=== PATIENT | female | born 2000 | race Caucasian/White ===

== ENCOUNTER 2022-02-11 17:06 | Emergency (ER) | payer OTHER, SELFPAY ==
--- NOTE | ~2022-02-11 | XR_ITS ---
EXAMINATION: XR CHEST CLINICAL INFORMATION: Cough. COMPARISON: None TECHNIQUE: Frontal view of the chest was obtained. FINDINGS: Normal appearance of the cardiomediastinal silhouette. No focal airspace opacity, pleural effusion or pneumothorax. No acute osseous abnormalities. The visualized upper abdomen is within normal limits. XR/XR chest 1V IMPRESSION: No acute cardiopulmonary findings.
[2022-02-11 17:28] VITALS: BP 160/86; PULSE 103; RESP 20; TEMP 37.8; O2SAT 98; BMI 19.1
--- NOTE | 2022-02-11 17:28 | ED_ITS ---
HPI - URI/Sore Throat General Chief Complaint: Nausea/Vomiting/Diarrhea <MARVIN Ash Last Filed: 02/11/22 17:34> Stated Complaint: covid/ flu symptoms, vomiting <MARVIN Ash Last Filed: 02/11/22 17:34> Time Seen by Provider: 02/11/22 18:45 <MARVIN Ash Last Filed: 02/11/22 17:34> Source: patient and family <MARVIN Benavides Last Filed: 02/11/22 19:31> Mode of arrival: ambulatory <MARVIN Benavides Last Filed: 02/11/22 19:31> Limitations: no limitations <MARVIN Benavides Last Filed: 02/11/22 19:31> History of Present Illness HPI Narrative: This is a 22-year-old female a history of bipolar disorder on lithium presenting to the emergency department complaints of nausea, vomiting, myalgias, fatigue, fevers T-max 103 degrees F, chills, dry cough x4 days. Patient reports that she has multiple sick contacts at home. She tells me her mom and her room air both sick. She has been taking Tylenol for symptoms. She tells me she has been able to keep down fluids however she has no appetite for solid foods. She tells me she is vaccinated against COVID however not the flu. She denies chest pain, shortness breath, headache, vision changes, dizziness, abdominal pain, diarrhea, hematochezia, hematemesis <MARVIN Benavides Last Filed: 02/11/22 19:31> Related Data Home Medications: Previous Rx's Medication Instructions Recorded benzonatate 100 mg capsule 100 mg PO BID PRN cough #20 caps 02/11/22 ondansetron 4 mg disintegrating 4 mg PO Q6H PRN nausea and 02/11/22 tablet vomiting #14 tabs prednisone 20 mg tablet 20 mg PO DAILY 5 days #5 tabs 02/11/22 <MARVIN Ash Last Filed: 02/11/22 17:34> Allergies/Adverse Reactions: Allergies Allergy/AdvReac Type Severity Reaction Status Date / Time egg [EGG] Allergy Mild INTOLERANCE Unverified 10/26/19 19:40 lactose [LACTOSE] Allergy Mild UNKNOWN Unverified 10/26/19 19:40 azithromycin [AZITHROMYCIN] Allergy Unknown UNKNOWN Unverified 10/26/19 19:40 <MARVIN Ash - Last Filed: 02/11/22 17:34> Review of Systems Review of Systems: Constitutional : No Weight loss, + Fever, + Chills, + Fatigue, + Malaise ENT/Mouth : No sore throat, No Rhinorrhea Eyes: No Eye Pain, No Swelling, No Redness Cardiovascular : No Chest Pain, No SOB, No Dyspnea on Exertion, No Orthopnea, No Edema, No Palpitations Respiratory : + Cough, No Sputum, No Wheezing Gastrointestinal : + Nausea, + Vomiting, No Diarrhea, No Constipation, No abdominal Pain, No Hematochezia, No Melena Genitourinary : No Dysuria, No Urinary Frequency, No Hematuria, Musculoskeletal : No joint pain, + Myalgias, No Joint Swelling Skin : No Skin Lesions, No rash Neuro : No Weakness, No Numbness, No Dizziness, No Headache Psych : No Anxiety/Panic, No Depression All other systems reviewed and are negative <MARVIN Benavides - Last Filed: 02/11/22 19:31> Yes all other systems are reviewed and are negative <MARVIN Benavides - Last Filed: 02/11/22 19:31> [facility] Past Medical History Attestation statement: The following information was validated with the patient. <MARVIN Benavides - Last Filed: 02/11/22 19:31> Source: old records reviewed and nursing notes reviewed <MARVIN Benavides - Last Filed: 02/11/22 19:31> Social History Social History: Social History Advance Directives: No Advance Directives Information Provided: Yes <MARVIN Ash - Last Filed: 02/11/22 17:34> Physical Exam Vital Signs: Vital Signs: Last Vital Signs Temp 100.1 F 02/11/22 17:28 Pulse 103 H 02/11/22 17:28 Resp 20 02/11/22 17:28 BP 160/86 H 02/11/22 17:28 Pulse Ox 98 02/11/22 17:28 O2 Del Method 02/11/22 17:28 BMI result Body Mass Index 19.1 <MARVIN Ash - Last Filed: 02/11/22 17:34> Vital Signs: Last Vital Signs Temp 100.1 F 02/11/22 17:28 Pulse 103 H 02/11/22 17:28 Resp 20 02/11/22 17:28 BP 160/86 H 02/11/22 17:28 Pulse Ox 98 02/11/22 17:28 O2 Del Method 02/11/22 17:28 BMI result Body Mass Index 19.1 <MARVIN Benavides - Last Filed: 02/11/22 19:31> Course Course Course Narrative: RME--22yo F w/pmhx bipolar c/o cough, fever, chills, myalgias, nausea, vomiting & diarhea with inability to tolerate PO x 4 days. Denies abd pain, recent travel, sick contacts or suspicious food intake Febrile to 101 in triage, dry cough noted. Labs, UA, preg, IVF ordered. Pt given SL Zofran and PO Tylenol in triage <MARVIN Ash - Last Filed: 02/11/22 17:34> Reevaluation(s) Reevaluation #1: CBC appears to be within patient's baseline. Chemistry with no acute findings requiring intervention chest x-ray with acute findings. UA clean. negative. Patient positive for influenza likely contributing to patient's symptoms. She also has multiple sick contacts. Patient is not a candidate for Tamiflu as her symptoms have been going on for greater than 48 hours. Patient tells me she cannot take ibuprofen so I a educated her on taking Tylenol, to not exceed maximum daily dose. Told her if she is unable to tolerate p.o. at all she needs to return. Or return with new or worsening symptoms. Educated patient on diagnosis and treatment plan, answered all question, patient verbalizes understanding. At this time patient will be discharged home, advised to return with new or worsening symptoms. Educated on worrisome signs and symptoms and when to return. At this time I feel comfortable discharge home. <MARVIN Benavides - Last Filed: 02/11/22 19:31> Time: 19:30 <MARVIN Benavides - Last Filed: 02/11/22 19:31> Medications Administered Discontinued Medications Generic Name Dose Route Start Last Admin Trade Name Freq PRN Reason Stop Dose Admin Acetaminophen 650 mg 02/11/22 17:28 02/11/22 17:34 Acetaminophen 325 Mg Tablet PO 02/11/22 17:29 650 mg ONCE ONE Administration Ondansetron HCl 4 mg 02/11/22 17:28 02/11/22 17:34 Ondansetron Odt 4 Mg Tab.Rapdis TRANSLINGU 02/11/22 17:29 4 mg ONCE ONE Administration <MARVIN Ash - Last Filed: 02/11/22 17:34> Medications Administered Discontinued Medications Generic Name Dose Route Start Last Admin Trade Name Freq PRN Reason Stop Dose Admin Acetaminophen 650 mg 02/11/22 17:28 02/11/22 17:34 Acetaminophen 325 Mg Tablet PO 02/11/22 17:29 650 mg ONCE ONE Administration Ondansetron HCl 4 mg 02/11/22 17:28 02/11/22 17:34 Ondansetron Odt 4 Mg Tab.Rapdis TRANSLINGU 02/11/22 17:29 4 mg ONCE ONE Administration <MARVIN Benavides Last Filed: 02/11/22 19:31> Medical Decision Making Medical Decision Making MDM Narrative: 1914 22-year-old female presents with flu-like symptoms x4 days. Has multiple sick contacts at home and roommates. Reports decreased p.o. intake however tolerating fluids. Physical examination benign. Likely viral in origin. I do not suspect infectious nausea or vomiting, acute abdomen, PE, pneumonia, rhabdomyolysis, electrolyte abnormality. Plan at this time is to obtain basic labs, viral panel, chest x-ray, <MARVIN Benavides Last Filed: 02/11/22 19:31> Differential Diagnosis Differential Diagnoses: The differential diagnosis associated with the presentation includes <MARVIN Benavides Last Filed: 02/11/22 19:31> Likely viral in origin. I do not suspect infectious nausea or vomiting, acute abdomen, PE, pneumonia, rhabdomyolysis, electrolyte abnormality. <MARVIN Benavides Last Filed: 02/11/22 19:31> Admission/Observation Consideration of admission/observation: Escalation of care including admission/observation considered <MARVIN Benavides - Last Filed: 02/11/22 19:31> Not indicated <MARVIN Benavides - Last Filed: 02/11/22 19:31> Lab Data MDM Lab Attestation statement: I reviewed the patient's lab results. <MARVIN Benavides - Last Filed: 02/11/22 19:31> Result Diagrams: : 02/11/22 18:03 02/11/22 18:03 <MARVIN Ash - Last Filed: 02/11/22 17:34> Labs: Lab Results 02/11/22 02/11/22 02/11/22 Range/Units 17:54 17:55 17:55 WBC (4.8-10.8) X10*3/uL RBC (4.20-5.50) X10*6/uL Hgb (12.0-16.0) g/dl Hct (37.0-47.0) % MCV (80.0-98.0) fL MCH (27.0-33.0) pg MCHC (31.0-35.0) g/dl RDW (11.0-16.0) % Plt Count (160-400) X10*3/uL MPV (9.4-12.3) fL Immature Gran % (Auto) (0.0-0.4) % Neut % (Auto) (45-73) % Lymph % (Auto) (20-40) % [place] % (Auto) (2-11) % Eos % (Auto) (0-4) % Baso % (Auto) (0-2) % Lymph # (Auto) (1.2-4.9) X10*3/uL [place] # (Auto) (0.1-1.2) X10*3/uL Eos # (Auto) (0.0-0.4) X10*3/uL Baso # (Auto) (0.0-0.2) X10*3/uL Abs Immat Gran (auto) (0.00-0.03) X10*3/uL Absolute Neuts (auto) (2.0-8.3) x10*3/uL Absolute Nucleated RBC (0.0-0.012) X10*3/uL Nucleated RBC % (auto) (0.0-0.2) /100WBC Sodium (135-145) mmol/L Potassium (3.3-5.1) mmol/L Chloride (96-108) mmol/L Carbon Dioxide (22-29) mmol/L Anion Gap (12-20) BUN (9-16) mg/dL Creatinine (0.5-1.4) mg/dL Estim Creat Clear Calc Estimated GFR Random Glucose (60-115) mg/dL Calcium (8.4-10.2) mg/dL Magnesium (1.6-2.6) mg/dL Total Bilirubin (0.0-1.0) mg/dL Direct Bilirubin (0.0-0.5) mg/dL AST (5-31) U/L ALT (0-31) U/L Alkaline Phosphatase (39-117) U/L Total Protein (6.5-8.0) g/dL Albumin (3.5-5.0) g/dL Lipase (8-78) U/L Urine Color Yellow Urine Appearance Clear Urine pH 6.5 (5.0-9.0) Ur Specific [place] <= 1.005 (1.005-1.025) Urine Protein Negative (Neg-Trace) mg/dL Urine Glucose (UA) Negative (Negative) mg/dL Urine Ketones Negative (Negative) mg/dL Urine Blood Small (1+) H (Negative) Urine Nitrite Negative (Negative) Ur Leukocyte Esterase Negative (Negative) Urine RBC 0-2 (0-2) /HPF Urine WBC 0-5 (0-5) /HPF Ur Squamous Epith Cells 6-10 (0-2) /HPF Urine Bacteria Trace (None Seen) Hyaline Casts 0-2 (0-2) /LPF Urine Test NEGATIVE (NEGATIVE) Influenza Type A (PCR) POSITIVE A (Negative) Influenza Type B (PCR) NEGATIVE (Negative) RSV RNA Qual (PCR) NEGATIVE (Negative) SARS-CoV-2 RNA (RT-PCR) NEGATIVE (Negative) 02/11/22 02/11/22 Range/Units 18:03 18:03 WBC 5.2 (4.8-10.8) X10*3/uL RBC 4.28 (4.20-5.50) X10*6/uL Hgb 12.6 (12.0-16.0) g/dl Hct 36.7 L (37.0-47.0) % MCV 85.7 (80.0-98.0) fL MCH 29.4 (27.0-33.0) pg MCHC 34.3 (31.0-35.0) g/dl RDW 13.2 (11.0-16.0) % Plt Count 99 L (160-400) X10*3/uL MPV 13.0 H (9.4-12.3) fL Immature Gran % (Auto) 0.2 (0.0-0.4) % Neut % (Auto) 71.6 (45-73) % Lymph % (Auto) 16.5 L (20-40) % [place] % (Auto) 11.5 H (2-11) % Eos % (Auto) 0.0 (0-4) % Baso % (Auto) 0.2 (0-2) % Lymph # (Auto) 0.9 L (1.2-4.9) X10*3/uL [place] # (Auto) 0.6 (0.1-1.2) X10*3/uL Eos # (Auto) 0.0 (0.0-0.4) X10*3/uL Baso # (Auto) 0.0 (0.0-0.2) X10*3/uL Abs Immat Gran (auto) 0.01 (0.00-0.03) X10*3/uL Absolute Neuts (auto) 3.7 (2.0-8.3) x10*3/uL Absolute Nucleated RBC 0.000 (0.0-0.012) X10*3/uL Nucleated RBC % (auto) 0.0 (0.0-0.2) /100WBC Sodium 137 (135-145) mmol/L Potassium 3.3 (3.3-5.1) mmol/L Chloride 105 (96-108) mmol/L Carbon Dioxide 23 (22-29) mmol/L Anion Gap 12 (12-20) BUN 4 L (9-16) mg/dL Creatinine 0.79 (0.5-1.4) mg/dL Estim Creat Clear Calc 86.4 Estimated GFR > 60 Random Glucose 101 (60-115) mg/dL Calcium 9.5 (8.4-10.2) mg/dL Magnesium 1.8 (1.6-2.6) mg/dL Total Bilirubin 0.5 (0.0-1.0) mg/dL Direct Bilirubin 0.2 (0.0-0.5) mg/dL AST 24 (5-31) U/L ALT 7 (0-31) U/L Alkaline Phosphatase 52 (39-117) U/L Total Protein 7.4 (6.5-8.0) g/dL Albumin 4.9 (3.5-5.0) g/dL Lipase 19 (8-78) U/L Urine Color Urine Appearance Urine pH (5.0-9.0) Ur Specific [place] (1.005-1.025) Urine Protein (Neg-Trace) mg/dL Urine Glucose (UA) (Negative) mg/dL Urine Ketones (Negative) mg/dL Urine Blood (Negative) Urine Nitrite (Negative) Ur Leukocyte Esterase (Negative) Urine RBC (0-2) /HPF Urine WBC (0-5) /HPF Ur Squamous Epith Cells (0-2) /HPF Urine Bacteria (None Seen) Hyaline Casts (0-2) /LPF Urine Test (NEGATIVE) Influenza Type A (PCR) (Negative) Influenza Type B (PCR) (Negative) RSV RNA Qual (PCR) (Negative) SARS-CoV-2 RNA (RT-PCR) (Negative) <MARVIN Ash - Last Filed: 02/11/22 17:34> Lab Results 02/11/22 02/11/22 02/11/22 Range/Units 17:54 17:55 17:55 WBC (4.8-10.8) X10*3/uL RBC (4.20-5.50) X10*6/uL Hgb (12.0-16.0) g/dl Hct (37.0-47.0) % MCV (80.0-98.0) fL MCH (27.0-33.0) pg MCHC (31.0-35.0) g/dl RDW (11.0-16.0) % Plt Count (160-400) X10*3/uL MPV (9.4-12.3) fL Immature Gran % (Auto) (0.0-0.4) % Neut % (Auto) (45-73) % Lymph % (Auto) (20-40) % [place] % (Auto) (2-11) % Eos % (Auto) (0-4) % Baso % (Auto) (0-2) % Lymph # (Auto) (1.2-4.9) X10*3/uL [place] # (Auto) (0.1-1.2) X10*3/uL Eos # (Auto) (0.0-0.4) X10*3/uL Baso # (Auto) (0.0-0.2) X10*3/uL Abs Immat Gran (auto) (0.00-0.03) X10*3/uL Absolute Neuts (auto) (2.0-8.3) x10*3/uL Absolute Nucleated RBC (0.0-0.012) X10*3/uL Nucleated RBC % (auto) (0.0-0.2) /100WBC Sodium (135-145) mmol/L Potassium (3.3-5.1) mmol/L Chloride (96-108) mmol/L Carbon Dioxide (22-29) mmol/L Anion Gap (12-20) BUN (9-16) mg/dL Creatinine (0.5-1.4) mg/dL Estim Creat Clear Calc Estimated GFR Random Glucose (60-115) mg/dL Calcium (8.4-10.2) mg/dL Magnesium (1.6-2.6) mg/dL Total Bilirubin (0.0-1.0) mg/dL Direct Bilirubin (0.0-0.5) mg/dL AST (5-31) U/L ALT (0-31) U/L Alkaline Phosphatase (39-117) U/L Total Protein (6.5-8.0) g/dL Albumin (3.5-5.0) g/dL Lipase (8-78) U/L Urine Color Yellow Urine Appearance Clear Urine pH 6.5 (5.0-9.0) Ur Specific [place] <= 1.005 (1.005-1.025) Urine Protein Negative (Neg-Trace) mg/dL Urine Glucose (UA) Negative (Negative) mg/dL Urine Ketones Negative (Negative) mg/dL Urine Blood Small (1+) H (Negative) Urine Nitrite Negative (Negative) Ur Leukocyte Esterase Negative (Negative) Urine RBC 0-2 (0-2) /HPF Urine WBC 0-5 (0-5) /HPF Ur Squamous Epith Cells 6-10 (0-2) /HPF Urine Bacteria Trace (None Seen) Hyaline Casts 0-2 (0-2) /LPF Urine Test NEGATIVE (NEGATIVE) Influenza Type A (PCR) POSITIVE A (Negative) Influenza Type B (PCR) NEGATIVE (Negative) RSV RNA Qual (PCR) NEGATIVE (Negative) SARS-CoV-2 RNA (RT-PCR) NEGATIVE (Negative) 02/11/22 02/11/22 Range/Units 18:03 18:03 WBC 5.2 (4.8-10.8) X10*3/uL RBC 4.28 (4.20-5.50) X10*6/uL Hgb 12.6 (12.0-16.0) g/dl Hct 36.7 L (37.0-47.0) % MCV 85.7 (80.0-98.0) fL MCH 29.4 (27.0-33.0) pg MCHC 34.3 (31.0-35.0) g/dl RDW 13.2 (11.0-16.0) % Plt Count 99 L (160-400) X10*3/uL MPV 13.0 H (9.4-12.3) fL Immature Gran % (Auto) 0.2 (0.0-0.4) % Neut % (Auto) 71.6 (45-73) % Lymph % (Auto) 16.5 L (20-40) % [place] % (Auto) 11.5 H (2-11) % Eos % (Auto) 0.0 (0-4) % Baso % (Auto) 0.2 (0-2) % Lymph # (Auto) 0.9 L (1.2-4.9) X10*3/uL [place] # (Auto) 0.6 (0.1-1.2) X10*3/uL Eos # (Auto) 0.0 (0.0-0.4) X10*3/uL Baso # (Auto) 0.0 (0.0-0.2) X10*3/uL Abs Immat Gran (auto) 0.01 (0.00-0.03) X10*3/uL Absolute Neuts (auto) 3.7 (2.0-8.3) x10*3/uL Absolute Nucleated RBC 0.000 (0.0-0.012) X10*3/uL Nucleated RBC % (auto) 0.0 (0.0-0.2) /100WBC Sodium 137 (135-145) mmol/L Potassium 3.3 (3.3-5.1) mmol/L Chloride 105 (96-108) mmol/L Carbon Dioxide 23 (22-29) mmol/L Anion Gap 12 (12-20) BUN 4 L (9-16) mg/dL Creatinine 0.79 (0.5-1.4) mg/dL Estim Creat Clear Calc 86.4 Estimated GFR > 60 Random Glucose 101 (60-115) mg/dL Calcium 9.5 (8.4-10.2) mg/dL Magnesium 1.8 (1.6-2.6) mg/dL Total Bilirubin 0.5 (0.0-1.0) mg/dL Direct Bilirubin 0.2 (0.0-0.5) mg/dL AST 24 (5-31) U/L ALT 7 (0-31) U/L Alkaline Phosphatase 52 (39-117) U/L Total Protein 7.4 (6.5-8.0) g/dL Albumin 4.9 (3.5-5.0) g/dL Lipase 19 (8-78) U/L Urine Color Urine Appearance Urine pH (5.0-9.0) Ur Specific [place] (1.005-1.025) Urine Protein (Neg-Trace) mg/dL Urine Glucose (UA) (Negative) mg/dL Urine Ketones (Negative) mg/dL Urine Blood (Negative) Urine Nitrite (Negative) Ur Leukocyte Esterase (Negative) Urine RBC (0-2) /HPF Urine WBC (0-5) /HPF Ur Squamous Epith Cells (0-2) /HPF Urine Bacteria (None Seen) Hyaline Casts (0-2) /LPF Urine Test (NEGATIVE) Influenza Type A (PCR) (Negative) Influenza Type B (PCR) (Negative) RSV RNA Qual (PCR) (Negative) SARS-CoV-2 RNA (RT-PCR) (Negative) <MARVIN Benavides Last Filed: 02/11/22 19:31> Independent Interpretation I performed an independent interpretation of an: Plain X-Ray ( XR/XR chest 1V IMPRESSION: No acute cardiopulmonary findings. ) <MARVIN Benavides Last Filed: 02/11/22 19:31> Radiology Impression Discussion of test interpretation with radiology: I have reviewed the radiologist's reading. <MARVIN Benavides Last Filed: 02/11/22 19:31> Discharge Plan Discharge Clinical Impression: Influenza A <MARVIN Ash Last Filed: 02/11/22 17:34> Patient Disposition: Home, Self-Care <MARVIN Ash Last Filed: 02/11/22 17:34> Instructions: Influenza (ED), Flu Shot (Vaccine) for Adults (ED) <MARVIN Ash Last Filed: 02/11/22 17:34> Additional Instructions: Take your medications as prescribed. If you were prescribed antibiotics t tanya, it is important that you take your medication to their entirety, do not skip any doses, do not finish them early. Follow-up with your primary care provider this week. Return to the emergency department with new or worsening symptoms. Such as fevers, chills, chest pain, shortness of breath, nausea, vomiting, dizziness, headache, vision changes, lethargy, not tolerating anything by mouth In case of emergency call 911 You can take ibuprofen every 6 hours, Tylenol every 4 hours as needed for fevers, chills pain or discomfort. Do not exceed maximum daily dose as listed on the package. Your contagious, wash her hands frequently, drink plenty of fluids. <MARVIN Ash Last Filed: 02/11/22 17:34> Prescriptions: New prednisone 20 mg tablet 20 mg PO DAILY 5 Days Qty: 5 0RF benzonatate 100 mg capsule 100 mg PO BID PRN (Reason: cough) Qty: 20 0RF ondansetron 4 mg tablet,disintegrating 4 mg PO Q6H PRN (Reason: nausea and vomiting) Qty: 14 0RF <MARVIN Ash Last Filed: 02/11/22 17:34> Referrals: Physician,Unknown J [Primary Care Provider] - 2 days <MARVIN Ash - Last Filed: 02/11/22 17:34> Stand Alone Forms: Work/School Release <MARVIN Ash - Last Filed: 02/11/22 17:34> Interventions: ED Discharge Assessment Last Done: 02/11/22 19:29 <MARVIN Ash - Last Filed: 02/11/22 17:34>
[2022-02-11] MEDS: Acetaminophen 325 MG TABLET 650 MG PO (17:34)
[2022-02-11] MEDS: Ondansetron ODT 4 MG TAB.RAPDIS TRANSLINGU (17:34)
[2022-02-11 18:11] LABS: MANUAL DIFF FLAG NO
[2022-02-11 18:13] LABS: Basophils Percent Auto 0.2 % (0-2); Hematocrit 36.7 % (37.0-47.0); Hemoglobin 12.6 g/dl (12.0-16.0); Imm Gran Abs Auto 0.01 X10*3/uL (0.00-0.03); Imm Gran Pct Auto 0.2 % (0.0-0.4); Lymphocytes Absolute Auto 0.9 X10*3/uL (1.2-4.9); Lymphocytes Percent Auto 16.5 % (20-40); Mean Corpuscular HGB Conc 34.3 g/dl (31.0-35.0); Mean Corpuscular Hemoglobin 29.4 pg (27.0-33.0); Mean Corpuscular Volume 85.7 fL (80.0-98.0); Monocytes Absolute Auto 0.6 X10*3/uL (0.1-1.2); Monocytes Percent Auto 11.5 % (2-11); Neutrophils Absolute Auto 3.7 x10*3/uL (2.0-8.3); Neutrophils Percent Auto 71.6 % (45-73); Red Blood Count 4.28 X10*6/uL (4.20-5.50); Red Cell Distribution Width 13.2 % (11.0-16.0); White Blood Count 5.2 X10*3/uL (4.8-10.8)
[2022-02-11 18:14] LABS: Appearance Urine Clear; Color Urine Yellow; Glucose Urine UA Negative (Negative); Leukocyte Esterase Urine Negative (Negative); Nitrite Urine Negative (Negative); PH 6.5 (5.0-9.0); Specific Gravity - Urine <= 1.005 (1.005-1.025); UMIC TRIGGER UACC YES; Urine Blood Small (1+) (Negative); Urine Ketones Negative (Negative); Urine Protein Negative (Neg-Trace)
[2022-02-11 18:20] LABS: UPreg QC Valid YES; Urine Pregnancy NEGATIVE (NEGATIVE)
[2022-02-11 18:31] LABS: Alanine Aminotransferase 7 U/L (0-31); Albumin Level 4.9 g/dL (3.5-5.0); Alkaline Phosphatase 52 U/L (39-117); Anion Gap 12 (12-20); Aspartate Amino Transferase 24 U/L (5-31); Bilirubin Direct 0.2 mg/dL (0.0-0.5); Bilirubin Total 0.5 mg/dL (0.0-1.0); Blood Urea Nitrogen 4 mg/dL (9-16); Calcium 9.5 mg/dL (8.4-10.2); Carbon Dioxide 23 mmol/L (22-29); Chloride 105 mmol/L (96-108); Creatinine Clr Calc Pharmacy 86.4; Estimated Glomerular Filt Rate > 60; Glucose Random 101 mg/dL (60-115); Lipase 19 U/L (8-78); Magnesium 1.8 mg/dL (1.6-2.6); Potassium 3.3 mmol/L (3.3-5.1); Sodium 137 mmol/L (135-145); Total Protein 7.4 g/dL (6.5-8.0)
[2022-02-11 18:48] LABS: Bacteria Urine Trace (None Seen); Hyaline Casts Urine 0-2 /LPF (0-2); RBC Urine 0-2 /HPF (0-2); WBC Urine 0-5 /HPF (0-5)
[2022-02-11 18:48] LABS: Platelet Count 99 X10*3/uL (160-400)
[2022-02-11 18:51] LABS: Influenza A PCR POSITIVE (Negative); Influenza B PCR NEGATIVE (Negative); Resp Syncy Virus RNA Qual PCR NEGATIVE (Negative); SARS COV2 PCR INHOUSE NEGATIVE (Negative)
== END 2022-02-11 19:30 | disposition home or self-care (01) ==
PROVIDERS: Physician Assistant; Emergency Provider Internal Medicine
DX: J11.1 Influenza due to unidentified influenza virus with other respiratory manifestations (principal); R50.9 Fever, unspecified; Z20.822 Contact with and (suspected) exposure to COVID-19
CPT/HCPCS: 0241U; 36415; 71045; 80048; 80076; 81001; 81025; 83690; 83735; 85025; 99283